=== PATIENT | male | born 1985 | race Asian ===

== ENCOUNTER 2020-07-03 15:50 | Emergency (ER) | payer MEDICAID ==
[~2020-07-03] VITALS: Ht 167.6 cm; Wt 71.7 kg
[2020-07-03 16:01] VITALS: Ht 167.6 cm; Wt 71.7 kg
[2020-07-03 18:11] LABS: BASOPHIL % 0.7 % (0-2); PLATELET COUNT 180 x10^3mcL (130-400); RED CELL DISTRIBUTION WIDTH 12.5 % (11.5-14.5)
[2020-07-03 18:17] LABS: CALCIUM 9.2 mg/dL (8.5-10.1); CARBON DIOXIDE 27.3 mmol/L (21-32); CHLORIDE SERUM 102 mmol/L (98-107); CREATININE SERUM 0.9 mg/dL (0.7-1.3); GFR1 > 60 mL/min; GLUCOSE SERUM 107 mg/dL (74-106); POTASSIUM SERUM 3.5 mmol/L (3.5-5.1); SODIUM SERUM 136 mmol/L (136-145)
[2020-07-03 19:42] VITALS: BP 132/94
== END 2020-07-03 19:42 | disposition short-term general hospital (02) ==
LOC: ED 15:50
PROVIDERS: Emergency Medicine
DX: S05.31XA Ocular laceration without prolapse or loss of intraocular tissue, right eye, initial encounter (principal); W22.8XXA Striking against or struck by other objects, initial encounter; Y93.89 Activity, other specified; Y92.89 Other specified places as the place of occurrence of the external cause; Y99.8 Other external cause status
CPT/HCPCS: 90715; J0744; J2270; J2405; J3370